=== PATIENT | male | born 1990 | race Caucasian/White ===

== ENCOUNTER 2024-02-01 07:31 | Outpatient (CLI) | payer BC, SELFPAY ==
--- NOTE | 2024-02-01 09:28 | W.ANESCHARGE ---
Anesthesia Charges Start Date/Time Anesthesia Start Date: 02/01/24 Anesthesia Start Time: 08:50 Stop Date/Time Anesthesia Stop Date: 02/01/24 Anesthesia Stop Time: 09:34
--- NOTE | 2024-02-01 09:36 | W.ANESCHARGE ---
Anesthesia Charges Start Date/Time Anesthesia Start Date: 02/01/24 Anesthesia Start Time: 08:50 Stop Date/Time Anesthesia Stop Date: 02/01/24 Anesthesia Stop Time: 09:34
== END 2024-02-01 07:32 | disposition home or self-care (01) ==
LOC: OP CLINIC 07:32
PROVIDERS: PCP Family Medicine; Visit Provider Internal Medicine Gastroenterology
DX: R19.7 Diarrhea, unspecified (principal); K44.9 Diaphragmatic hernia without obstruction or gangrene
CPT/HCPCS: 00813; 43239; 45380; 88305; J2704

== ENCOUNTER 2024-08-28 14:21 | Emergency (ER) | payer BC, SELFPAY ==
[2024-08-28 14:47] VITALS: BP 134/84; PULSE 110; RESP 18; TEMP 35.8; O2SAT 96; BMI 36.9
--- NOTE | 2024-08-28 15:08 | ED_ITS ---
HPI - General Adult General Chief complaint: Chest Pain Stated complaint: Chest pain Time Seen by Provider: 08/28/24 14:22 History of Present Illness HPI narrative: This 34-year-old male comes in with his son. He states that when he called the nurse line regarding his son he did mention that he was having some very brief episodes of chest discomfort lasting seconds. He does not have any other associated symptoms. He was instructed by the phone nurse to come to the emergency department for evaluation. He denies having any exercise intolerance. He does not have any nausea, vomiting, lightheadedness, or shortness of breath. He has not had any diaphoresis. He also reports some brief jolts of pain running down his left leg lasting just a couple seconds. He is otherwise in good health. Related Data Home Medications ?Medication ?Instructions ?Recorded ?Confirmed aripiprazole 20 mg tablet 15 mg PO QDAY 01/16/23 08/28/24 lamotrigine 25 mg tablet 50 mg PO ONCE 01/16/23 08/28/24 lamotrigine 300 mg tablet,extended 600 mg PO QDAY 01/16/23 08/28/24 release 24 hr aripiprazole 15 mg tablet 15 mg PO DAILY 08/28/24 08/28/24 metformin 500 mg tablet,extended 1,500 mg PO DAILY 08/28/24 08/28/24 release 24 hr Allergies Allergy/AdvReac Type Severity Reaction Status Date / Time famotidine AdvReac Mild worse acid Verified 08/28/24 14:45 reflux Review of Systems Status of ROS: Reports: 10 or more systems reviewed and unremarkable except as noted in History and below Narrative: Constitutional: No fevers, no weight gain or loss. Eyes: No discharge. No vision changes. HENT: No congestion, no sore throat, no ear pain. Cardiovascular: No chest pain, no palpitations. Respiratory: No shortness of breath, no wheezes, no cough. Gastrointestinal: No abdominal pain, no vomiting, no diarrhea. Genitourinary: No dysuria, no hematuria. Musculoskeletal: Normal range of motion. Skin: No rashes, no pruritis. Neurological: No dizziness, weakness, sensory change, speech change. Endo/Heme/Allergies: No bruising or bleeding. No polydipsia. Pysch: no suicidality, no anxiety, no insomnia. All other systems reviewed and are negative. PFSH PFSH Social History Smoking Status: Never smoker How often do you have a drink containing alcohol: never AUDIT-C Alcohol total score: 0 Non-prescribed substance use: denies use Exam Narrative: Exam Narrative: Constitutional: Well-developed, well-nourished, no acute distress. HEENT: Normocephalic, atraumatic. Neck: Normal range of motion. Nontender. Supple. Heart: Intact distal pulses. Lungs: No chest discomfort. No wheezes, rhonchi, or rales. Abdomen: Nontender. Back: Normal range of motion. Extremities: Normal range of motion. No injury. Skin: Intact. No rash. Warm. No erythema or pallor. Neurologic: No altered sensation. No weakness. Alert and oriented. Psychiatric: No suicidality. No anxiety or depression. No insomnia. Nursing notes and vitals signs are reviewed. Const: Vital Signs, click to edit/add: Vital Signs - 24 hr 08/28/24 14:47 Temperature 96.5 F L Pulse Rate [Pulse Oximeter] 110 H Respiratory Rate 18 Blood Pressure [Le ft Upper Arm] 134/84 Pulse Oximetry 96 Oxygen Delivery Me thod Room Air Course Vital Signs Vital signs: Initial Vital Signs Temperature 96.5 F L 08/28/24 14:47 Temperature Source Temporal Artery Scan 08/28/24 14:47 Pulse Rate 110 H 08/28/24 14:47 Respiratory Rate 18 08/28/24 14:47 Blood Pressure 134/84 08/28/24 14:47 Blood Pressure Mean 100 08/28/24 14:47 Blood Pressure Position Sitting 08/28/24 14:47 Pulse Oximetry 96 08/28/24 14:47 Oxygen Delivery Method Room Air 08/28/24 14:47 Vital Signs Temperature 96.5 F L 08/28/24 14:47 Pulse Rate 110 H 08/28/24 14:47 Respiratory Rate 18 08/28/24 14:47 Blood Pressure 134/84 08/28/24 14:47 Pulse Oximetry 96 08/28/24 14:47 Oxygen Delivery Method Room Air 08/28/24 14:47 Temperature 96.5 F L 08/28/24 14:47 Pulse Rate 110 H 08/28/24 14:47 Respiratory Rate 18 08/28/24 14:47 Blood Pressure 134/84 08/28/24 14:47 Pulse Oximetry 96 08/28/24 14:47 Oxygen Delivery Method Room Air 08/28/24 14:47 Discharge Plan Discharge Clinical Impression: Atypical chest pain Patient Disposition: Home, Self-Care Condition: Stable Additional Instructions: Use [id number] medicines as needed and directed. Follow up with MD or return if worsening. Prescriptions: No Action lamotrigine 25 mg tablet 50 mg PO ONCE lamotrigine 300 mg tablet extended release 24hr 600 mg PO QDAY aripiprazole 20 mg tablet 15 mg PO QDAY metformin 500 mg tablet extended release 24 hr 1,500 mg PO DAILY aripiprazole 15 mg tablet 15 mg PO DAILY Follow Up/Referrals: Haylee Huertas MD [Primary Care Provider] - Stand Alone Forms: [employer] Info Instructions
[2024-08-28 15:18] VITALS: BP 134/84; PULSE 110; RESP 18; TEMP 35.8
== END 2024-08-28 15:18 | disposition home or self-care (01) ==
PROVIDERS: Emergency Provider Emergency Medicine Emergency Medical Services; PCP Family Medicine
DX: R07.89 Other chest pain (principal)
CPT/HCPCS: 99283; 99284

== ENCOUNTER 2024-10-22 09:15 | Emergency (ER) | payer BC, SELFPAY ==
--- OUTSIDE RECORDS SUMMARY | 2024-10-22 09:18 | XMS_ITS | Clinical Summary ---
Author Organization [facility] Address [place], [place] [address] Care Team Providers Care Tailoring Teacher Name Role Phone Haylee Huertas MD Primary Care Provider Allergies Active Allergy Reactions Criticality Noted Date Comments Famotidine *Unknown,Other - Describe In Comment Field 01/09/2022 01/09/22 Geovanni states he is allergic to famotidine not prilosec. States prilosec worked well. Medications lamoTRIgine (LaMICtal XR) 300 mg extended release tabletIndicati ons:Temporal lobe epilepsy (HC) Take 2 Tablets (600 mg) by mouth once daily. 180 Tablet 1 1 Active lamoTRIgine (LAMICTAL) 25 mg tabletIndicati ons:Temporal lobe epilepsy (HC) Take 2 Tablets (50 mg) by mouth once daily. 180 Tablet 1 1 Active medication order composerIndica tions:ROSEMARY (obstructive sleep apnea) 12/17/2020 AHI- 16; Obstructive sleep apnea - diagnosis; MRD #1. Dental appliance 3 Active omeprazole 20 mg tabletIndicati ons:Chronic GERD Take 1 Tablet (20 mg) by mouth once daily. daily for 1 week as needed 30 Tablet 1 4 Active Digestive Enzymes capsule Take 1 Capsule by mouth three times daily with meals. DIGEST GOLD Maximum strength 4 Active ARIPiprazole (ABILIFY) 15 mg tabletIndicati ons:Bipolar 1 disorder (HC) Take 1 Tablet (15 mg) by mouth once daily. 90 Tablet 3 4 Active metFORMIN (GLUCOPHAGE XR) 500 mg Extended-Relea se tabletIndicati ons:Weight gain due to medication,Pre diabetes Take 4 Tablets (2,000 mg) by mouth once daily. Do not increase if side effects. Further refills will be prescribed during an appointment 360 Tablet 3 5 Active lithium carbonate (LITHONATE) 300 mg capsuleIndicat ions:Bipolar 1 disorder (HC) Take 3 Capsules (900 mg) by mouth at bedtime. Further refills will be prescribed after a blood draw 270 Capsule 5 Active metFORMIN (GLUCOPHAGE XR) 500 mg Extended-Relea se tabletIndicati ons:Weight gain due to medication,Pre diabetes Take 3 Tablets (1,500 mg) by mouth once daily for 28 days, THEN 4 Tablets (2,000 mg) once daily. Do not increase if side effects. Further refills will be prescribed during an appointment. 360 Tablet 4 09/30/19 25 Discontin ued(*Medi cation adjustmen t) lithium carbonate (LITHONATE) 300 mg capsuleIndicat ions:Bipolar 1 disorder (HC) Take 1 Capsule (300 mg) by mouth at bedtime. Further refills will be prescribed after a blood draw and during an appointment 90 Capsule 4 09/30/19 25 Discontin ued(*Medi cation adjustmen t) lithium carbonate (LITHONATE) 300 mg capsuleIndicat ions:Bipolar 1 disorder (HC) Take 2 Capsules (600 mg) by mouth at bedtime. Further refills will be prescribed after a blood draw 180 Capsule 5 10/11/19 25 Discontin ued(*Medi cation adjustmen t) Active Problems Problem Noted Date Diagnosed Date Neuroleptic-induced tardive dyskinesia, oral COVID-19 virus infection 08/28/2023 Overview (08/28/2023): August 2023: positive test with symptoms. 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 Resolved Problems Problem Noted Date Diagnosed Date Resolved Date Bipolar affective disorder, manic, severe, with psychotic behavior 05/12/2017 09/22/2022 Encounters Date Type Department Care Team Description 10/18/2024 3:00 PM CIRCUS SUPERVISOR Telemedicine [facility] [address] [place] [address] Error-please disregard (NO SHOW) 10/12/[address] [address] Alvarado Charles MD Medication Management (lithium carbonate (LITHONATE) 300 mg capsule ); Follow Up (return call) 10/12/[address] [address] Alvarado Charles MD Follow Up 10/11/[address] [address] Alvarado Charles MD 10/10/2024 1:15 PM CIRCUS SUPERVISOR Orders Only [address] [address] Lab, [facility] 10/10/2024 Travel 10/07/2024 Nurse Triage [address] [address] Alvarado Charles MD Rash 09/30/2024 12:30 PM CIRCUS SUPERVISOR Telemedicine [address] [address] Alvarado Charles MD Telehealth 09/30/[address] [address] Alvarado Charles MD CHRISTY 09/30/2024 Travel 09/26/2024 1:00 PM CIRCUS SUPERVISOR Nurse/Clinic Staff Only [address] [address] Immunization/Injection (COVID-19 AND FLU VACCINES ); Immunization/Injection 09/26/2024 Travel 09/20/2024 10:30 AM CIRCUS SUPERVISOR Telemedicine [address] [place] [address] Medical Nutrition Therapy; Telehealth 09/20/2024 Travel 09/16/2024 Orders Only [address] [place] [address] Haylee Huertas MD 1 scan: (1-Ord) NFLD-EKG-09/15/24 09/15/2024 10:50 AM CIRCUS SUPERVISOR Office Visit [address] [address] Haylee Huertas MD Cardiovascular Diagnostic Testing (Needing for Dr. Charles and Litium Draw) 09/15/2024 Travel 09/06/[address] [address] Haylee Huertas MD Refill Request (Omeprazole DR 20mg tablet) 09/02/2024 9:30 AM CIRCUS SUPERVISOR Office Visit [address] [address] Alvarado Charles MD Medication Management 09/02/2024 Travel 08/31/[address] [address] Alvarado Charles MD Medication Management (ARIPiprazole ) 08/28/2024 Nurse Triage [address] [address] Haylee Huertas MD Cough 08/16/2024 1:30 PM CIRCUS SUPERVISOR Telemedicine [address] [address] Alvarado Charles MD Telehealth; Medication Management (Things are not good, also has been sick with pertussis for about a month) 08/16/2024 Travel 08/15/2024 12:50 PM CIRCUS SUPERVISOR Office Visit [address] [address] Lucita Moran PA Cough 08/15/2024 Travel 08/15/2024 Nurse Triage [facility] [address] [place] [address] Haylee Huertas MD Cough from Last 3 Months Immunizations Name Administration Dates Next Due COVID-19 VACCINE SPIKEVAX (M ODERNA 50MCG/0.5ML) 12YO+ PFS 09/26/2024,10/15/2023 COVID-19 vaccine (Pfizer-Bio NTech 30mcg/0.3mL) 12YO+ NIKOLAY-SUCROSE PF, MDV 08/11/2022 DTP 03/17/1995, 2,1991,1990,1991 Hib Conjugate, Unspecified 06/14/1992,,1991,1990 INFLUENZA, IIV3 PF (AGE >= 6 MO) 09/26/2024 Influenza, IIV4 10/15/2023,08/11/2022 MMR 03/17/1995,06/14/1992 Oral Polio Vaccine 03/17/1995, 2,1991,1990,1991 Tdap 08/11/2022 Family History Medical History Relation Name Comments Asthma Brother Depression Father Heart Disease Father heart surgery in his 60s, unsure of type Thyroid Disease Mother Autism Son Relation Name Status Comments Brother Father Mother Son Alive Social History Tobacco Use Types Packs/Day Years Used Date Smoking Tobacco: Never Smokeless Tobacco: Never Tobacco Cessation:Counseling Given: Yes Alcohol Use Standard Drinks/Week Comments Not Currently 0 (1 standard drink = 0.6 oz pur e alcohol) denied lifetime PHQ-2 Answer Date Recorded PHQ-2 TOTAL SCORE 0 09/30/2024 Social Connections Answer Date Recorded Do you often feel lonely or isolated from those around you? 0 09/15/2024 Financial Resource Strain Answer Date R ecorded Difficulty of Paying Living Expenses 3 09/15/2024 Difficulty of Paying Living Expenses Not on file 09/15/2024 Food Insecurity Answer Date Recorded Do you worry your food will run out before you are able to buy more? 1 09/15/2024 Transportation Needs Answer Date Record ed Does lack of transportation keep you from medica l appointments? 1 09/15/2024 Does lack of transportation keep you from work, meetings or getting things that you need? 1 09/15/2024 Housing Stability Answer Date Recorded What is your housing situation today? 1 09/15/2024 Utilities Answer Date Recorded Do you have trouble paying f or utilities (for example, heat, electricity, water, phone)? 1 09/15/2024 Education Answer Date Recorded What is the highest level of school you have completed or the highest degree you have received? 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 Not on file Not on file Not on laron e Obstetrics History Last Filed Vital Signs Vital Sign Reading Time Taken Comments Blood Pressure 123/80 09/15/2024 10:48 AM CIRCUS SUPERVISOR Pulse 81 09/15/2024 10:48 AM CIRCUS SUPERVISOR Temperature 36.7 C (98.1 F) 08/15/2024 12:50 PM CIRCUS SUPERVISOR Respiratory Rate 16 08/27/2021 11:0 6 AM CIRCUS SUPERVISOR Oxygen Saturation 95% 09/15/2024 10: 48 AM CIRCUS SUPERVISOR Inhaled Oxygen Concentration - - Weight 114.4 kg (252 lb 3.2 oz) 024 10:48 AM CIRCUS SUPERVISOR Height 174.4 cm (5' 8.66) 01/28/2024 7:52 AM CD T Body Mass Index 37.61 01/28/2024 7:52 AM CDT Plan of Treatment Upcoming Encounters Date Type Department Care Team (Late st Contact Info) Description 11/04/2024 12:30 PM CIRCUS SUPERVISOR Telemedicine [facility] [address] [place] [address] Alvarado Charles MD [address] [place] [address] Health Maintenance Due Date Last Done Comments BMI (ht and wt on same day) for age 18+ 01/27/2025 01/28/2024, 10/15/2023, 08/27/2023, Additional history exists Depression screening for age 12+ 09/30/2025 09/30/2024, 09/30/2024, 09/02/2024, Additional history exists Tetanus booster 08/11/2032 08/11/2022 Colonoscopy through age 75 01/31/203401/31, 02/01/2024, 02/01/2024, Additional history exists HIV for age 15-65 Completed 08/11/2022 Hepatitis C screening for age 18-79 Completed 08/11/2022 Tdap Completed 08/11/2022 COVID-19 vaccine series Completed 09/26/19, 10/15/2023, 08/11/2022 Influenza for age 9-49 Completed 5, 10/15/2023, 08/11/2022 Pneumococcal series for age 6-49 Aged Out No longer eligible based on patient's age to complete this topic Procedures Procedure Name Priority Date/Time Associated Diagnosis Comments LITHIUM Routine 10/10/2024 1:14 PM CIRCUS SUPERVISOR Long-term use of high-risk medication EKG 12 LEAD Routine 09/16/2024 4:30 PM CIRCUS SUPERVISOR Transfer requested for continuity of care [place] EKG - NO CHARGE, COMP ONLY Routine 09/16/2024 4:29 PM CIRCUS SUPERVISOR Transfer requested for continuity of care LITHIUM Routine 09/15/2024 11:51 AM CIRCUS SUPERVISOR Long-term use of high-risk medication LITHIUM Routine 09/02/2024 10:45 AM CIRCUS SUPERVISOR Long-term use of high-risk medication TSH WITH REFLEX Routine 09/02/2024 10:45 AM CIRCUS SUPERVISOR Long-term use of high-risk medication CBC WITH AUTO DIFFERENTIAL Routine 09/02/2024 10:45 AM CIRCUS SUPERVISOR Long-term use of high-risk medication BASIC METABOLIC PANEL Routine 09/02/2024 10:45 AM CIRCUS SUPERVISOR Long-term use of high-risk medication COLONOSCOPY DIAGNOSTIC Routine 02/01/2024 7:59 AM CDT Chronic diarrhea ANTI HIV 1/2 Routine 08/11/2022 2:14 PM CIRCUS SUPERVISOR Screening for HIV (human immunodeficiency virus) ANTI HCV Routine 08/11/2022 2:14 PM CIRCUS SUPERVISOR Need for hepatitis C screening test from Last 3 Months or Most Recently Relevant to Health Maintenance Results * (ABNORMAL) LITHIUM (10/10/2024 1:14 PM CIRCUS SUPERVISOR) Only the most recent of3 resultswithin the time period is included. LITHIUM 0.3(L) 0.6 - 1.2 mmol/L [facility] Blood BLOOD SPECIMEN / Unknown 10/10/2024 1:14 PM CIRCUS SUPERVISOR 10/10/2024 1:16 PM CIRCUS SUPERVISOR Narrative [facility] - 10/11/2024 2:46 PM CIRCUS SUPERVISOR FASTING:NO FASTING: NO us Alvarado Charles MD CHEMISTRY Final Result Performing Organization Address City/[facility] Co de Phone Number [employer] [facility] [address] [place] [address], [facility] [address] [place] [address] * EKG 12 LEAD (09/16/2024 4:30 PM CIRCUS SUPERVISOR) us Haylee Huertas MD EKG ORD Final Resul t * [place] READING EKG - NO CHARGE, COMP ONLY (09/16/2024 4:29 PM CIRCUS SUPERVISOR) us Haylee Huertas MD PB - [facility] Rosa [facility] Result * TSH WITH REFLEX (09/02/2024 10:45 AM CIRCUS SUPERVISOR) TSH W/REFLEX TO FT4 1.79 0.40 - 4.50 mIU/L [facility] Blood BLOOD SPECIMEN / Unknown 09/02/2024 10:45 AM CIRCUS SUPERVISOR 09/02/2024 10:45 AM CIRCUS SUPERVISOR us Alvarado Charles MD CHEMISTRY Final Result [facility] [address] [place] [address], [facility] [address] [place] [address] * CBC AND DIFFERENTIAL (09/02/2024 10:45 AM CIRCUS SUPERVISOR) [facility] WHITE BLOOD CELL COUNT 7.8 3.8 - 10.8 Thousand/u L [facility] RED BLOOD CELL COUNT 5.40 4.20 - 5.80 Million/uL [facility] HEMOGLOBIN 16.6 13.2 - 17.1 g/dL [facility] HEMATOCRIT 48.6 38.5 - 50.0 % [facility] MCV 90.0 80.0 - 100.0 fL [facility] MCH 30.7 27.0 - 33.0 pg [facility] MCHC 34.2 32.0 - 36.0 g/dL [facility] Comment: For adults, a slight decrease in the calculated MCHC value (in the range of 30 to 32 g/dL) is most likely not clinically significant; however, it should be interpreted with caution in correlation with other red cell parameters and the patient's clinical condition. RDW 12.8 11.0 - 15.0 % [facility] PLATELET COUNT 308 140 - 400 Thousand/u L [facility] MPV 10.8 7.5 - 12.5 fL [facility] ABSOLUTE NEUTROPHILS 4,376 1,500 - 7,800 cells/uL [facility] ABSOLUTE LYMPHOCYTES 2,675 850 - 3,900 cells/uL [facility] ABSOLUTE MONOCYTES 546 200 - 950 cells/uL [facility] ABSOLUTE EOSINOPHILS 156 15 - 500 cells/uL [facility] ABSOLUTE BASOPHILS 47 0 - 200 cells/uL [facility] NEUTROPHILS 56.1 % [facility] LYMPHOCYTES 34.3 % [facility] MONOCYTES 7.0 % [facility] EOSINOPHILS 2.0 % [facility] BASOPHILS 0.6 % [facility] Blood BLOOD SPECIMEN / Unknown 09/02/2024 10:45 AM CIRCUS SUPERVISOR 09/02/2024 10:45 AM CIRCUS SUPERVISOR Alvarado Charles MD HEMATOLOGY Final Result Performing Organization Address [facility]/ZIP Co de Phone Number [facility] [address] [place] [address], [facility] [address] [place] [address] * BASIC METABOLIC PANEL (09/02/2024 10:45 AM CIRCUS SUPERVISOR) Pathologist [facility] GLUCOSE 93 65 - 99 mg/dL [facility] Comment: Fasting reference interval UREA NITROGEN (BUN) 17 7 - 25 mg/dL [facility] CREATININE 0.99 0.60 - 1.26 mg/dL [facility] EGFR 103 > OR = 60 mL/min/1. 73m2 [facility] BUN/CREATININE RATIO SEE NOTE: 6 - 22 (calc) [facility] Comment: Not Reported: BUN and Creatinine are within reference range. SODIUM 139 135 - 146 mmol/L [facility] POTASSIUM 4.8 3.5 - 5.3 mmol/L [facility] CHLORIDE 104 98 - 110 mmol/L [facility] CARBON DIOXIDE 25 20 - 32 mmol/L [facility] ELECTROLYTE BALANCE 10 7 - 17 mmol/L (calc) [facility] CALCIUM 9.6 8.6 - 10.3 mg/dL [facility] Blood BLOOD SPECIMEN / Unknown 09/02/2024 10:45 AM CIRCUS SUPERVISOR 09/02/2024 10:45 AM CIRCUS SUPERVISOR Alvarado Charles MD CHEMISTRY Final Result Performing Organization Address [facility]/ZIP Co de Phone Number [employer] [facility] [address] [place] [address], [facility] [address] [place] [address] * SCAN-COLONOSCOPY (02/01/2024 12:00 AM CDT) Scanner OTHER Final Result * ANTI HCV (08/11/2022 2:14 PM CIRCUS SUPERVISOR) HEPATITIS C ANTIBODY Non-React shireen Non-React shireen 08/12/2022 9:25 PM CIRCUS SUPERVISOR [facility] Comment:Antibodies to HCV no t detected; does not exclude the possibility of exposure to HCV. Blood BLOOD SPECIMEN / Unknown Venipuncture / Unknown 08/11/2022 2:14 PM CIRCUS SUPERVISOR 08/11/2022 2:14 PM CIRCUS SUPERVISOR Haylee Huertas MD SEND OUTS Final Resul t Performing Organization Address City/[facility]/ZIP Co de Phone Number [facility] [address] [place] [address], [place] * ANTI HIV 1/2 [21344.0] (08/11/2022 2:14 PM CIRCUS SUPERVISOR) Pathologist [facility] HIV-1/HIV-2 ANTIBODY Non-Reacti ve Non-Reacti ve 08/12/2022 9:32 PM CIRCUS SUPERVISOR [facility] Comment:HIV-1 p24 and HIV-1/ HIV-2 Ab not detected. Blood BLOOD SPECIMEN / Unknown Venipuncture / Unknown 08/11/2022 2:14 PM CIRCUS SUPERVISOR 08/11/2022 2:14 PM CIRCUS SUPERVISOR Haylee Huertas MD SEND OUTS Final Resul t [facility] [address] [place] [address], from Last 3 Months or Most Recently Relevant to Health Maintenance Insurance [place] Care Teams Tailoring Teacher Relationship Specialty Start Date End Date Haylee Huertas MD [address] [place] [address] PCP - General Family Practice 08/11/22
--- OUTSIDE RECORDS SUMMARY | 2024-10-22 09:18 | XMS_ITS | Encounter Summary ---
Author Organization [facility] Address [address] [place] [id number] Care Team Providers Care Manager Patient Name Role Phone Elsewhere, Pcp Primary Care Provider Unavailabl e Reason for Referral * Outpatient (Routine) - Authorized Specialty Diagnoses / Procedures Referred By Janie prater Referred To Contact Neurology Annamaria Huizar APRN C.N.P., M.S. [address] [place] [phone] Phone: tel: fax: [facility] Referral ID Status Reason Start Date Expiration Date V isits Requested Visits Authorized [id number] Authorized 10/13/2024 04/14/2026 1 1 ESTIMATING MANAGER Reason for Visit * Reason Onset Date Comments Med Question 10/13/2024 Bhupendra Encounter Details Date Type Department Care Team (Latest Contact Info) Description 10/13/2024 Clinical Communication Department of Neurology in [place], [place] [address] [place] [phone] Annamaria Huizar APRN, C.N.P., M.S. [address] [place] [phone] Med Question (Bhupendra) Social History Tobacco Use Types Packs/Day Years Used Date Smoking Tobacco: Never Passive Smoke Exposure: Past Smokeless Tobacco: Never [facility] Utilities Answer Date Recorded In the past 12 months has [facility] electric, gas, oil, or water company threatened to shut off services in your home? No 09/12/2023 Humiliation, Afraid, Rape, and Kick questionnair e Answer Date Recorded Within the last year, have y ou been afraid of your partner or ex-partner? No 11/09/2021 Within the last year, have y ou been humiliated or emotionally abused in other ways by your partner or ex-partner? No Within the last year, have y ou been kicked, hit, slapped, or otherwise physically hurt by your partner or ex-partner? No 11/09/2021 Within the last year, have y ou been raped or forced to have any kind of sexual activity by your partner or ex-partner? No 11/09/2021 Social Connection and Isolat ion Panel [NHANES] Answer Date Recorded In a typical week, how many times do you talk on the phone with family, friends, or neighbors? More than three times a week 11/09/2021 How often do you get togethe r with friends or relatives? Twice a week 11/09/2021 How often do you attend [facility] or mandaen services? More than 4 times per year 11/09/2021 Do you belong to any clubs o r organizations such as catholic groups, unions, fraternal or athletic groups, or school groups? Yes 11/09/2021 How often do you attend meet ings of the clubs or organizations you belong to? More than 4 times per year 11/09/2021 Are you , , di vorced, , never , or living with a partner? 11/09/2021 AUDIT-C Answer Date Recorded Q1: How often do you have a drink containing alc ohol? Never 11/09/2021 Average Number of Drinks Not on file 022 Frequency of Binge Drinking Not on file 10/22 Overall Financial Resource Strain (CARDIA) Answe r Date Recorded How hard is it for you to pa y for the very basics like food, housing, medical care, and heating? Not hard at all 11/09/2021 PHQ-2 Answer Date Recorded PHQ-2 Score 0 01/09/2022 [facility] [place] of Occupat ional Health - Occupational Stress Questionnaire Answer Date Recorded Do you feel stress - tense, restless, nervous, or anxious, or unable to sleep at night because your mind is troubled all the time - these days? Not at all 11/09/2021 Exercise Vital Sign Answer Date Recorde d On average, how many days pe r week do you engage in moderate to strenuous exercise (like a brisk walk)? 0 days 09/12/2023 On average, how many minutes do you engage in exercise at this level? 0 min 09/12/2023 Hunger Vital Sign Answer Date Recorded Within the past 12 months, y ou worried that your food would run out before you got the money to buy more. Never true 09/12/20 Within the past 12 months, t he food you bought just didn't last and you didn't have money to get more. Never true 09/12/2023 PRAPARE - Transportation Answer Date Re corded In the past 12 months, has l ack of transportation kept you from medical appointments or from getting medications? No 08/22 In the past 12 months, has l ack of transportation kept you from meetings, work, or from getting things needed for daily living? No 09/12/2023 Depression Answer Date Recor ded PHQ-9 Total Score (max 27) 3 01/09 Nutrition Answer Date Recorded Nutrition: EVOO Fat Source Yes 09/12 On average, how many serving s of fruits and vegetables do you eat per day (serving size is equal to 1 cup or approximately the size of a tennis ball)? 3-5 09/12/2023 Dental Answer Date Recorded Dental: Regular Dentist Yes 09/12/20 Employment Answer Date Recorded Employment status Employed and actively working without restrictions 09/12/2023 Housing Stability Answer Date Recorded What is your living situation today? I have a [facility] place to live 09/12/2023 Education Answer Date Recorded What is the highest level of school you have completed or the highest degree you have received? Bachelor's degree (e.g., BA, AB, BS) 11/09/2021 Sex and Gender Information Value Date Recorded Sex Assigned at Male 11/09/2021 3:34 PM COST ESTIMATING MANAGER Legal Sex Male 1:05 PM CDT Gender Identity Male 11/09/2021 3:34 PM COST ESTIMATING MANAGER Sexual Orientation Straight 11/09/2021 3: 34 PM COST ESTIMATING MANAGER documented as of this encounter Miscellaneous Notes * Telephone Encounter - Dayana Cisneros R.N. - 10/13/2024 1:19 PM COST ESTIMATING MANAGER ASSESSMENT This RN returned call to patient regarding earlier phone call. Geovanni reported since last Thursday, he has had small flat red patches on his skin. They are not hives or blister. They are aggravated with scratching. They are present to hands, arms, legs, back, one large area on his abdomen and one small area to his face. They are not itchy. He has tried Zyrtec for the red patches earlier in the week and initially seemed to help some, but has not noticed benefit now. He is placing moisturizer onhis skin. He agrees to sending a few photo's of the rash via [employer] message. He denies any redness to eyes. He does report some vision changes such as when he is reading he needs to try and focus more intently on reading the words. He denies fever, dizziness, unsteady, fatigue. He has been on lamotrigine 650 mg daily for years. He started [place] about one month ago and is currently on a titration. Regarding his twitching, he reports this to happen daily. He can feel it, but it does not draw people's attention. He reports the twitching to be slight in his hand, but he can see it if he pays attention to it. This has been going on for about 3 months now and may have correlated with adjustments to his aripiprazole. He also reports a recent single involuntary kick which makes him wonder if an EEG should be completed. He has not had any recent seizure activity that he is aware of, but with these two symptoms, he is concerned. PLAN Will provide this information to Annamaria Huizar APRN, CNP. Patient will try to upload a few pictures of the rash for Annamaria Huizar's review. Disposition/Recommendation: notified provider and awaiting recommendations. Information/Education: patient/caller able to teach back. Caller agreeable to plan of care: yes. The following references were used: nursing clinical judgement. ESTIMATING MANAGER ESTIMATING MANAGER documented in this encounter Plan of Treatment Upcoming Encounters Date Type Department Care Team (Latest Contact Info) Description 11/09/2024 1:45 PM COST ESTIMATING MANAGER Clinical Communication Virtual Review in [place], [place] 200 [place] [phone] 11/10/2024 8:00 AM COST ESTIMATING MANAGER Telemedicine Department of Neurology in [place], [place] [address] [place] [phone] Annamaria Huizar, LILO, C.N.P., M.S. [address] [place] [phone] Scheduled Referrals Name Type Priority Associated Diagnoses Orde r Schedule Neurology office visit (clinic) Outpatient Referral Routine Expected: 10/13/2024, Expires: 01/11/2026 documented as of this encounter Visit Diagnoses Not on filedocumented in this encounter Additional Health Concerns Assessment Noted Time PHQ-9 Depression Total Score: 3 01/10/20 22 7:28 AM CDT documented as of this encounter Care Teams Manager Patient Relationship Specialty Start Date End Date Elsewhere, Pcp PCP - General Internal Medicine 09/10/23 documented as of this encounter
--- OUTSIDE RECORDS SUMMARY | 2024-10-22 09:18 | XMS_ITS | Clinical Summary ---
Author Organization [facility] Address [address] [place] [address] Care Team Providers Care Rand Maker Name Role Phone Elsewhere, Pcp Primary Care Provider Unavailabl e Source Comments Patient records contain information from all sites at [facility]. For routine questions regarding patient records, call [phone] during business hours, M-F 8:00 AM - 5:00 PM Central Time. Record requests for emergency care only can be directed to [phone] at any time.[facility] Allergies Active Allergy Reactions Criticality Noted Date Comments Famotidine Other (see comments) 01/09/2022 01/09/22 Geovanni states he is allergic to famotidine not prilosec. States prilosec worked well. Medications * This document contains information received from the source organization and may not represent a complete record from that organization. UNABLE TO FIND 12/17/2020 AHI- 16; Obstructive sleep apnea - diagnosis; MRD #1. Dental appliance 3 Active ARIPiprazole (Abilify) 10 mg tablet Take 1 tablet by mouth daily. 4 Active metFORMIN XR (Glucophage-XR) 500 mg 24 hr tablet Take 500 mg by mouth daily. 4 Active ARIPiprazole (Abilify) 2 mg tablet Take 2 mg by mouth daily. 4 Active lamoTRIgine (LaMICtaL) 25 mg tabletIndicatio ns:Seizure Disorder (HCC) Take 2 tablets (50 mg total) by mouth daily. 180 tablet 3 4 Active lamoTRIgine ER (LaMICtaL XR) 300 mg 24 hr tabletIndicatio ns:Seizure Disorder (HCC) Take 2 tablets (600 mg total) by mouth daily. 180 tablet 3 4 Active Encounters Date Type Department Care Team Description 10/13/2024 Clinical Communication Department of Neurology in [place], [place] [address] [place] [phone] Annamaria Huizar APRN C.N.Chanelle., M.S. Med Question (Bhupendra) from Last 3 Months Social History Tobacco Use Types Packs/Day Years Used Date Smoking Tobacco: Never Passive Smoke Exposure: Past Smokeless Tobacco: Never Tobacco Cessation:Counseling Given: Not Answered [facility] Sparkities Answer Date Recorded In the past 12 months has th e electric, gas, oil, or water [employer] threatened to shut off services in your [...] week 11/09/2021 How often do you attend chur ch or holiness services? More than 4 times per year 11/09/2021 Do you belong to any clubs o r organizations such as rastafarian groups, unions, fraternal or athletic groups, or [...] Answer Date Recorded PHQ-2 Score 0 01/09/2022 [facility] of Occupat ional Health - Occupational Stress [...] your living situation today? I have a [facility] place to live 09/12/2023 Education Answer Date Recorded What is the highest level of school you have completed or the highest degree you have received? Bachelor's degree (e.g., BA, AB, BS) 11/09/2021 Sex and Gender Information Value Date Recorded Sex Assigned at Male 11/09/2021 3:34 PM PICKLER HELPER Legal Sex Male 1:05 PM CDT Gender Identity Male 11/09/2021 3:34 PM PICKLER HELPER Sexual Orientation Straight 11/09/2021 3: 34 PM PICKLER HELPER Last Filed Vital Signs Vital Sign Reading Time Taken Comments Blood Pressure 105/75 01/09/2022 7:29 AM CDT Pulse 87 01/09/2022 7:29 AM CDT Temperature 36.4 C (97.5 F) 11/11/2021 10:01 AM PICKLER HELPER Respiratory Rate - - Oxygen Saturation - - Inhaled Oxygen Concentration - - Weight 110 kg (241 lb 6.5 oz) 01/09/2022 7:29 AM CDT Height 174.5 cm (5' 8.7) 01/09/2022 7:29 AM CDT Body Mass Index 35.96 01/09/2022 7:29 AM CDT Plan of Treatment Upcoming Encounters Date Type Department Care Team (Latest Contact Info) Description 11/09/2024 1:45 PM PICKLER HELPER Clinical Communication Virtual Review in [place], [place] [address] [place] [phone] 11/10/2024 8:00 AM PICKLER HELPER Telemedicine Department of Neurology in [place], [place] [address] [place] [phone] Annamaria Huizar, LILO, C.N.P., M.S. [address] [place] [phone] Health Maintenance Due Date Last Done Comments HIV Screening 1991 Hepatitis C Screening 1991 Hepatitis B Vaccines (1 of 3 - 19+ 3-dose series) 2010 Glucose Test for Med Monitoring 08/29/2023 08/29/2022, 01/09/2022, 04/26/2021, Additional history exists Depression Screening (Annual PHQ-2) 09/21/2024 DTaP,Tdap,and Td Vaccines (7 - Td or Tdap) 08/11/2032 08/11/2022, 03/17/1995, 06/14/1992, Additional history exists COVID-19 Vaccine Completed 09/26/2024, , 08/11/2022 Influenza Vaccine Completed 09/26/2024, , 08/11/2022 HPV Vaccines Aged Out No longer eligi ble based on patient's age to complete this topic IPV Vaccines Aged Out No longer eligi ble based on patient's age to complete this topic Pneumococcal vaccine (0-49 years) Aged Out No longer eligible based on patient's age to complete this topic Procedures Procedure Name Priority Date/Time Associated Diagnosis Comments COMPREHENSIVE METABOLIC PANEL, S/P Routine 01/09/2022 7:18 AM CDT Seizure Disorder (HCC) from Last 3 Months or Most Recently Relevant to Health Maintenance Results * (ABNORMAL) Comprehensive Metabolic Panel (01/09/2022 7:18 AM CDT) Potassium, S 4.7 3.6 - 5.2 mmol/L 01/09/2022 8:36 AM CDT DTL Sodium, S 142 135 - 145 mmol/L 01/09/2022 8:36 AM CDT DTL Chloride, S 104 98 - 107 mmol/L 01/09/2022 8:36 AM CDT DTL Bicarbonate, S 27 22 - 29 mmol/L 01/09/2022 8:36 AM CDT DTL Anion Gap 11 7 - 15 01/09/2022 8:36 AM CDT DTL BUN (Blood Urea Nitrogen), S 13 8 - 24 mg/dL 01/09/2022 8:36 AM CDT DTL Creatinine 1.09 0.74 - 1.35 mg/dL 01/09/2022 8:36 AM CDT DTL eGFR-Non Black/ >90 >=60 mL/min/BS A 01/09/2022 8:36 AM CDT DTL Comment: ----ADDITIONAL INFORMATION---- Estimated GFR calculated using the 2009 CKD_EPI creatinine equation. eGFR-Black/ >90 >=60 mL/min/BS A 01/09/2022 8:36 AM CDT DTL Comment: ----ADDITIONAL INFORMATION---- Estimated GFR calculated using the 2009 CKD_EPI creatinine equation. Calcium, Total, S 9.1 8.6 - 10.0 mg/dL 01/09/2022 8:36 AM CDT DTL Glucose, S 97 70 - 140 mg/dL 01/09/2022 8:36 AM CDT DTL Protein, Total, S 6.8 6.3 - 7.9 g/dL 01/09/2022 8:36 AM CDT DTL Albumin, S 4.8 3.5 - 5.0 g/dL 01/09/2022 8:36 AM CDT DTL Aspartate Aminotransferase (AST), S 27 8 - 48 U/L 01/09/2022 8:36 AM CDT DTL Alkaline Phosphatase, S 66 40 - 129 U/L 01/09/2022 8:36 AM CDT DTL Alanine Aminotransferase (ALT), S 67(H) 7 - 55 U/L 01/09/2022 8:36 AM CDT DTL Bilirubin, Total, S 0.4 <=1.2 mg/dL 01/09/2022 8:36 AM CDT DTL Blood (Blood, Venous) 01/09/2022 7:18 AM CDT 01/09/2022 8:16 AM CDT Nga Paul M.D. LAB BLOOD ADD-ON Final Resu lt [facility] [address] [place] [address], [place] DTL [facility] [address] [place] [address] from Last 3 Months or Most Recently Relevant to Health Maintenance Insurance [facility] Care Teams Rand Maker Relationship Specialty Start Date End Date Elsewhere, Pcp PCP - General Internal Medicine 09/10/23
[2024-10-22 09:22] VITALS: BP 125/78; PULSE 102; RESP 20; TEMP 35.9; O2SAT 94; BMI 36.9
--- NOTE | 2024-10-22 09:48 | ED_ITS ---
HPI - General Adult General Chief complaint: Skin/Abscess/Foreign Body Stated complaint: Triage line sent in for fredi moore. Time Seen by Provider: 10/22/24 09:37 Source: patient Mode of arrival: ambulatory Limitations: no limitations History of Present Illness HPI narrative: Patient is a 34-year-old male presenting today with concerns about Whalen Remi's syndrome. Patient has been dealing with a rash for approximately 3 weeks and when he called the triage line this morning because he felt that his rash got worse last night he was told to come into the ER to rule out Whalen- Remi syndrome. Patient tells me that he started lithium about a month ago and shortly afterwards developed full body pruritus. He it comes and goes and it comes and patches so 1 day OB his arm that is itchy another day will be is back etc.. He denies vomiting. No fevers or chills. No changes in his appetite. No diarrhea. No lethargy. He tells me that he subsequently stopped the lithium about a week ago he thinks but the itching does continue to come and go and migrate throughout the body. He does get a rash also when the itching comes. He does notice that the more an area itches the more a rashes present. However the rash in the itching do not last for more than a day before it stops and migrates someplace else. He denies any unintended weight changes that he is aware of recently. He does follow-up with neurology for seizure disorder and with Psychiatry for his bipolar disorder. He is currently taking the lamotrigine which he states started causing him some morning nausea and he takes air prep was all which she states likely is not working for him any longer. He has follow-up appointments this month with both his psychiatrist and his neurologist already scheduled. Patient states that last night he started getting very itchy the posterior area of both shoulders just where his hands could reach to scratch the area he stated that the area became red with elevated bumps. He states that it is all back to normal today. Lastly, patient also tells me he has been dealing with a specific rash in his groin area. He tells me he has used all sorts of creams and medications for it and it is not getting better. He states that it is not getting worse. Again denies any systemic symptoms or weeping lesions of the genitals. Patient does not want his genitals examined today. Related Data Home Medications ?Medication ?Instructions ?Recorded ?Confirmed aripiprazole 20 mg tablet 15 mg PO QDAY 01/16/23 10/07/24 lamotrigine 25 mg tablet 50 mg PO ONCE 01/16/23 10/07/24 lamotrigine 300 mg tablet,extended 600 mg PO QDAY 01/16/23 10/07/24 release 24 hr aripiprazole 15 mg tablet 15 mg PO DAILY 08/28/24 10/07/24 metformin 500 mg tablet,extended 1,500 mg PO DAILY 08/28/24 10/07/24 release 24 hr lithium carbonate 600 mg capsule 600 mg PO QHS 10/07/24 10/07/24 Previous Rx's ?Medication ?Instructions ?Recorded hydrocortisone 2.5 % topical cream 1 applic topical BID PRN itching 10/07/24 #20 grams Allergies Allergy/AdvReac Type Severity Reaction Status Date / Time famotidine AdvReac Mild worse acid Verified 10/22/24 09:21 reflux Review of Systems Status of ROS: Reports: 10 or more systems reviewed and unremarkable except as noted in History and below [facility] Social History Smoking Status: Never smoker Do you use any of these nicotine containing products: None Second hand tobacco smoke exposure: No How often do you have a drink containing alcohol: never How often do you have six or more drinks on one occasion: Never AUDIT-C Alcohol total score: 0 Non-prescribed substance use: denies use service: No Exam Narrative: Exam Narrative: Overweight, well-developed patient in no acute distress. Alert and oriented x3. Answers questions appropriately. Flat affect. Thoughts are goal oriented and rational. No tangential or magical thinking noted. Patient speaks in full sentences without needing to catch his breath. He does not appear ill or toxic. HEENT: Normocephalic atraumatic. Pupils are equally round reactive to light. Extraocular muscles are intact. Conjunctivae are moist without any icterus noted. Moist mucous membranes. Posterior pharynx is normal. Neck is soft without any lymphadenopathy or thyromegaly. No masses are appreciated. No lesions noted on the inside of the mouth. Cardiovascular: Slightly tachycardic, regular rhythm, S1-S2 present without any murmurs. Lungs: Clear to auscultation bilaterally no wheezes rhonchi or rales are appreciated. Patient takes deep breaths without any discomfort. Abdomen: Soft and nontender nondistended with normal bowel sounds. Extremities: Bilateral lower extremities are without edema. Skin: Well perfused without any obvious rashes. Patient does have some acne on his back. There are no open lesions, no active rash at this moment. No rash of the extremities. : Refused. Const: Vital Signs, click to edit/add: Vital Signs - 24 hr 10/22/24 09:22 Temperature 96.7 F L Pulse Rate [Pulse Oximeter] 102 H Respiratory Rate 20 Blood Pressure [Le ft Upper Arm] 125/78 Pulse Oximetry 94 Oxygen Delivery Me thod Room Air Course Vital Signs Vital signs: Initial Vital Signs Temperature 96.7 F L 10/22/24 09:22 Temperature Source Temporal Artery Scan 10/22/24 09:22 Pulse Rate 102 H 10/22/24 09:22 Pulse Rhythm Regular 10/22/24 09:22 Respiratory Rate 20 10/22/24 09:22 Blood Pressure 125/78 10/22/24 09:22 Blood Pressure Mean 93 10/22/24 09:22 Blood Pressure Position Sitting 10/22/24 09:22 Pulse Oximetry 94 10/22/24 09:22 Oxygen Delivery Method Room Air 10/22/24 09:22 Vital Signs Temperature 96.7 F L 10/22/24 09:22 Pulse Rate 102 H 10/22/24 09:22 Respiratory Rate 20 10/22/24 09:22 Blood Pressure 125/78 10/22/24 09:22 Pulse Oximetry 94 10/22/24 09:22 Oxygen Delivery Method Room Air 10/22/24 09:22 Temperature 96.7 F L 10/22/24 09:22 Pulse Rate 102 H 10/22/24 09:22 Respiratory Rate 20 10/22/24 09:22 Blood Pressure 125/78 10/22/24 09:22 Pulse Oximetry 94 10/22/24 09:22 Oxygen Delivery Method Room Air 10/22/24 09:22 Medical Decision Making MDM Narrative Medical decision making narrative: 34-year-old male with pruritus. We discussed the cause of pruritus is very broad. I recommend he have this discussion with his neurologist and his psychiatrist were prescribing him his medications and change medications as needed. Recommend he see a primary care provider as well to follow-up on the rash of his groin. He is reassured today that there is no evidence of Whalen- Remi syndrome. Discharge Plan Discharge Clinical Impression: Pruritus Patient Disposition: Home, Self-Care Condition: Stable Instructions: Itchy Skin (ED) Additional Instructions: Follow-up with your neurologist and psychiatrist as scheduled. If the morning nausea becomes more troublesome, call your neurologist to discuss these symptoms before your next scheduled appointment. Recommend you follow-up with your primary care provider as well to discuss itchy skin and the rash of the groin . Prescriptions: No Action lamotrigine 25 mg tablet 50 mg PO ONCE lamotrigine 300 mg tablet extended release 24hr 600 mg PO QDAY aripiprazole 20 mg tablet 15 mg PO QDAY lithium carbonate 600 mg capsule 600 mg PO QHS hydrocortisone 2.5 % cream 1 applic topical BID PRN (Reason: itching) Qty: 20 0RF metformin 500 mg tablet extended release 24 hr 1,500 mg PO DAILY aripiprazole 15 mg tablet 15 mg PO DAILY Follow Up/Referrals: Haylee Huertas MD [Primary Care Provider] - Stand Alone Forms: [employer] Info Instructions
--- OUTSIDE RECORDS SUMMARY | 2024-10-22 09:58 | XMS_ITS | Clinical Summary ---
Author Organization [facility] Address [address] [place] [address] Care Team Providers Care Pipe Cleaning Machine Operator Name Role Phone Elsewhere, Pcp Primary Care Provider Unavailabl e Source Comments Patient records contain information from all sites at [facility]. For routine questions regarding patient records, call [phone] during business hours, M-F 8:00 AM - 5:00 PM Central Time. Record requests for emergency care only can be directed to [phone] at any time.[facility] Allergies Active Allergy Reactions Criticality Noted Date [...] 10/13/2024 Clinical Communication Department of Neurology in [place], [place] [address] [place] [address] Annamaria Huizar APRN C.N.Chanelle., M.S. Med Question (Bhupendra) from Last 3 Months Social History Tobacco Use Types Packs/Day Years Used Date Smoking Tobacco: Never Passive Smoke Exposure: Past Smokeless Tobacco: Never Tobacco Cessation:Counseling Given: Not Answered [facility] Answer Date Recorded In the past 12 months has th e electric, gas, oil, or water [employer] threatened to shut off services in your [...] often do you attend chur ch or gnosticist services? More than 4 times per year 11/09/2021 Do you belong to any clubs o r organizations such as methodist groups, unions, fraternal or athletic groups, or [...] Answer Date Recorded PHQ-2 Score 0 01/09/2022 [facility] of Occupat ional Health - Occupational Stress [...] your living situation today? I have a [facility] to live 09/12/2023 Education Answer Date Recorded What is the highest level of school you have completed or the highest degree you have received? Bachelor's degree (e.g., BA, AB, BS) 11/09/2021 Sex and Gender Information Value Date Recorded Sex Assigned at Male 11/09/2021 3:34 PM SHOP SUPERINTENDENT Legal Sex Male 1:05 PM CDT Gender Identity Male 11/09/2021 3:34 PM SHOP SUPERINTENDENT Sexual Orientation Straight 11/09/2021 3: 34 PM SHOP SUPERINTENDENT Last Filed Vital Signs Vital Sign Reading Time Taken Comments Blood Pressure 105/75 01/09/2022 7:29 AM CDT Pulse 87 01/09/2022 7:29 AM CDT Temperature 36.4 C (97.5 F) 11/11/2021 10:01 AM SHOP SUPERINTENDENT Respiratory Rate - - Oxygen Saturation - - Inhaled Oxygen Concentration - - Weight 110 kg (241 lb 6.5 oz) 01/09/2022 7:29 AM CDT Height 174.5 cm (5' 8.7) 01/09/2022 7:29 AM CDT Body Mass Index 35.96 01/09/2022 7:29 AM CDT Plan of Treatment Upcoming Encounters Date Type Department Care Team (Latest Contact Info) Description 11/09/2024 1:45 PM SHOP SUPERINTENDENT Clinical Communication Virtual Review in [place], [place] [address] [place] [address] 11/10/2024 8:00 AM SHOP SUPERINTENDENT Telemedicine Department of Neurology in [place], [place] [address] [place] [phone] Annamaria Huizar, LILO, C.N.P., M.S. [address] [place] [phone] Health Maintenance Due Date Last Done Comments [...] M.D. LAB BLOOD ADD-ON Final Resu lt [facility] [address] [place] [address], [place] DTL [facility] [address] [place] [address] from Last 3 Months or Most Recently Relevant to Health Maintenance Insurance [facility] Care Teams Pipe Cleaning Machine Operator Relationship Specialty Start Date End Date Elsewhere, Pcp PCP - General Internal Medicine 09/10/23
--- OUTSIDE RECORDS SUMMARY | 2024-10-22 09:58 | XMS_ITS | Clinical Summary ---
Author Organization [facility] Address [place], [place] [address] Care Team Providers Care Payroll Officer Name Role Phone Haylee Huertas MD Primary [...] Department Care Team Description 10/18/2024 3:00 PM ASBESTOS WORKER Telemedicine [facility] [address] [place] [address] Error-please disregard (NO SHOW) 10/12/[address] [address] Alvarado Charles MD Medication Management (lithium carbonate (LITHONATE) 300 mg capsule ); Follow Up (return call) 10/12/[address] [address] Alvarado Charles MD Follow Up 10/11/[address] [address] Alvarado Charles MD 10/10/2024 1:15 PM ASBESTOS WORKER Orders Only [address] [address] Lab, [facility] 10/10/2024 Travel 10/07/2024 Nurse Triage [address] [address] Alvarado Charles MD Rash 09/30/2024 12:30 PM ASBESTOS WORKER Telemedicine [address] [address] Alvarado Charles MD Telehealth 09/30/[address] [address] Alvarado Charles MD CHRISTY 09/30/2024 Travel 09/26/2024 1:00 PM ASBESTOS WORKER Nurse/Clinic Staff Only [address] [address] Immunization/Injection (COVID-19 AND FLU VACCINES ); Immunization/Injection 09/26/2024 Travel 09/20/2024 10:30 AM ASBESTOS WORKER Telemedicine [address] [place] [address] Medical Nutrition Therapy; Telehealth 09/20/2024 Travel 09/16/2024 Orders Only [address] [place] [address] Haylee Huertas MD 1 scan: (1-Ord) NFLD-EKG-09/15/24 09/15/2024 10:50 AM ASBESTOS WORKER Office Visit [address] [address] Haylee Huertas MD Cardiovascular Diagnostic Testing (Needing for Dr. Charles and Litium Draw) 09/15/2024 Travel 09/06/[address] [address] Haylee Huertas MD Refill Request (Omeprazole DR 20mg tablet) 09/02/2024 9:30 AM ASBESTOS WORKER Office Visit [address] [address] Alvarado Charles MD Medication Management 09/02/2024 Travel 08/31/[address] [address] Alvarado Charles MD Medication Management (ARIPiprazole ) 08/28/2024 Nurse Triage [address] [address] Haylee Huertas MD Cough 08/16/2024 1:30 PM ASBESTOS WORKER Telemedicine [address] [address] Alvarado Charles MD Telehealth; Medication Management (Things are not good, also has been sick with pertussis for about a month) 08/16/2024 Travel 08/15/2024 12:50 PM ASBESTOS WORKER Office Visit [address] [address] Lucita Moran PA Cough 08/15/2024 Travel 08/15/2024 Nurse Triage [facility] [address] [place] [address] Haylee Huertas MD Cough from Last 3 [...] on file Legal Sex Male 5:23 PM ASBESTOS WORKER Gender Identity Not on file Sexual Orientation Not on file 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 Not on file Not on laron e Obstetrics History Last Filed Vital Signs Vital Sign Reading Time Taken Comments Blood Pressure 123/80 09/15/2024 10:48 AM ASBESTOS WORKER Pulse 81 09/15/2024 10:48 AM ASBESTOS WORKER Temperature 36.7 C (98.1 F) 08/15/2024 12:50 PM ASBESTOS WORKER Respiratory Rate 16 08/27/2021 11:0 6 AM ASBESTOS WORKER Oxygen Saturation 95% 09/15/2024 10: 48 AM ASBESTOS WORKER Inhaled Oxygen Concentration - - Weight 114.4 kg (252 lb 3.2 oz) 024 10:48 AM ASBESTOS WORKER Height 174.4 cm (5' 8.66) 01/28/2024 7:52 AM CD T Body Mass Index 37.61 01/28/2024 7:52 AM CDT Plan of Treatment Upcoming Encounters Date Type Department Care Team (Late st Contact Info) Description 11/04/2024 12:30 PM ASBESTOS WORKER Telemedicine [facility] [address] [place] [address] Alvarado Charles MD [address] [place] [address] Health Maintenance Due Date Last Done Comments [...] Diagnosis Comments LITHIUM Routine 10/10/2024 1:14 PM ASBESTOS WORKER Long-term use of high-risk medication EKG 12 LEAD Routine 09/16/2024 4:30 PM ASBESTOS WORKER Transfer requested for continuity of care NE READING EKG - NO CHARGE, COMP ONLY Routine 09/16/2024 4:29 PM ASBESTOS WORKER Transfer requested for continuity of care LITHIUM Routine 09/15/2024 11:51 AM ASBESTOS WORKER Long-term use of high-risk medication LITHIUM Routine 09/02/2024 10:45 AM ASBESTOS WORKER Long-term use of high-risk medication TSH WITH REFLEX Routine 09/02/2024 10:45 AM ASBESTOS WORKER Long-term use of high-risk medication CBC WITH AUTO DIFFERENTIAL Routine 09/02/2024 10:45 AM ASBESTOS WORKER Long-term use of high-risk medication BASIC METABOLIC PANEL Routine 09/02/2024 10:45 AM ASBESTOS WORKER Long-term use of high-risk medication COLONOSCOPY DIAGNOSTIC Routine 02/01/2024 7:59 AM CDT Chronic diarrhea ANTI HIV 1/2 Routine 08/11/2022 2:14 PM ASBESTOS WORKER Screening for HIV (human immunodeficiency virus) ANTI HCV Routine 08/11/2022 2:14 PM ASBESTOS WORKER Need for hepatitis C screening test from Last 3 Months or Most Recently Relevant to Health Maintenance Results * (ABNORMAL) LITHIUM (10/10/2024 1:14 PM ASBESTOS WORKER) Only the most recent of3 resultswithin the time period is included. LITHIUM 0.3(L) 0.6 - 1.2 mmol/L [facility] Blood BLOOD SPECIMEN / Unknown 10/10/2024 1:14 PM ASBESTOS WORKER 10/10/2024 1:16 PM ASBESTOS WORKER Narrative [facility] - 10/11/2024 2:46 PM ASBESTOS WORKER FASTING:NO FASTING: NO us Alvarado Charles MD CHEMISTRY Final Result Performing Organization Address City/[facility] Co de Phone Number [facility] [address] [place] [address], [facility] [address] [place] [address] * EKG 12 LEAD (09/16/2024 4:30 PM ASBESTOS WORKER) us Haylee Huertas MD EKG ORD Final Resul t * NE READING EKG - NO CHARGE, COMP ONLY (09/16/2024 4:29 PM ASBESTOS WORKER) us Haylee Huertas MD PB - PROVIDER READINGS Rosa l Result * TSH WITH REFLEX (09/02/2024 10:45 AM ASBESTOS WORKER) TSH W/REFLEX TO FT4 1.79 0.40 - 4.50 mIU/L [facility] Blood BLOOD SPECIMEN / Unknown 09/02/2024 10:45 AM ASBESTOS WORKER 09/02/2024 10:45 AM ASBESTOS WORKER us Alvarado Charles MD CHEMISTRY Final Result [facility] [address] [place] [address], [facility] [address] [place] [address] * CBC AND DIFFERENTIAL (09/02/2024 10:45 AM ASBESTOS WORKER) [facility] WHITE BLOOD CELL COUNT 7.8 3.8 - 10.8 Thousand/u L [facility] RED BLOOD CELL COUNT 5.40 4.20 - 5.80 Million/uL [facility] HEMOGLOBIN 16.6 13.2 - 17.1 g/dL [facility] HEMATOCRIT 48.6 38.5 - 50.0 % [facility] MCV 90.0 80.0 - 100.0 fL [facility] MCH 30.7 27.0 - 33.0 pg [facility] MCHC 34.2 32.0 - 36.0 g/dL [facility] Comment: For adults, a slight decrease in the calculated MCHC value (in the range of 30 to 32 g/dL) is most likely not clinically significant; however, it should be interpreted with caution in correlation with other red cell parameters and the patient's clinical condition. RDW 12.8 11.0 - 15.0 % [facility] PLATELET COUNT 308 140 - 400 Thousand/u L [facility] MPV 10.8 7.5 - 12.5 fL [facility] ABSOLUTE NEUTROPHILS 4,376 1,500 - [...] BLOOD SPECIMEN / Unknown 09/02/2024 10:45 AM ASBESTOS WORKER 09/02/2024 10:45 AM ASBESTOS WORKER Alvarado Charles MD HEMATOLOGY Final Result Performing Organization Address [facility]/ZIP Co de Phone Number [facility] [address] [place] [address], [facility] [address] [place] [address] * BASIC METABOLIC PANEL (09/02/2024 10:45 AM ASBESTOS WORKER) Pathologist [facility] GLUCOSE 93 65 - 99 mg/dL [facility] [...] BLOOD SPECIMEN / Unknown 09/02/2024 10:45 AM ASBESTOS WORKER 09/02/2024 10:45 AM ASBESTOS WORKER Alvarado Charles MD CHEMISTRY Final Result Performing Organization Address [facility]/ZIP Co de Phone Number [facility] [address] [place] [address], [facility] [address] [place] [address] * SCAN-COLONOSCOPY (02/01/2024 12:00 AM CDT) Scanner OTHER Final Result * ANTI HCV (08/11/2022 2:14 PM ASBESTOS WORKER) HEPATITIS C ANTIBODY Non-React shireen Non-React shireen 08/12/2022 9:25 PM ASBESTOS WORKER [facility] Comment:Antibodies to HCV no t detected; does not exclude the possibility of exposure to HCV. Blood BLOOD SPECIMEN / Unknown Venipuncture / Unknown 08/11/2022 2:14 PM ASBESTOS WORKER 08/11/2022 2:14 PM ASBESTOS WORKER Haylee Huertas MD SEND OUTS Final Resul t Performing Organization Address City/[facility]/ZIP Co de Phone Number [facility] [address] [place] [address], [place] * ANTI HIV 1/2 [09905.0] (08/11/2022 2:14 PM ASBESTOS WORKER) Pathologist [facility] HIV-1/HIV-2 ANTIBODY Non-Reacti ve Non-Reacti ve 08/12/2022 9:32 PM ASBESTOS WORKER [facility] Comment:HIV-1 p24 and HIV-1/ HIV-2 Ab not detected. Blood BLOOD SPECIMEN / Unknown Venipuncture / Unknown 08/11/2022 2:14 PM ASBESTOS WORKER 08/11/2022 2:14 PM ASBESTOS WORKER Haylee Huertas MD SEND OUTS Final Resul t [facility] [address] [place] [address], from Last 3 Months or Most Recently Relevant to Health Maintenance Insurance [employer] Care Teams Payroll Officer Relationship Specialty Start Date End Date Haylee Huertas MD [address] [place] [address] PCP - General Family Practice 08/11/22
--- OUTSIDE RECORDS SUMMARY | 2024-10-22 09:58 | XMS_ITS | Encounter Summary ---
Author Organization [facility] Address [address] [place] [address] Care Team Providers Care Control Director Name Role Phone Elsewhere, Pcp Primary Care Provider Unavailabl e Reason for Referral * Outpatient (Routine) - Authorized Specialty Diagnoses / Procedures Referred By Janie prater Referred To Contact Neurology Annamaria Huizar APRN C.N.P., M.S. [address] [place] [phone] Phone: tel: fax: [facility] Referral ID Status Reason Start Date Expiration Date V isits Requested Visits Authorized [id number] Authorized 10/13/2024 04/14/2026 1 1 WARE QUALITY AUTOMATION ENGINEER Reason for Visit * Reason Onset Date Comments Med Question 10/13/2024 Bhupendra Encounter Details Date Type Department Care Team (Latest Contact Info) Description 10/13/2024 Clinical Communication Department of Neurology in [place], [place] [address] [place] [phone] Annamaria Huizar APRN, C.N.P., M.S. [address] [place] [phone] Med Question (Bhupendra) Social History Tobacco Use Types Packs/Day Years Used Date Smoking Tobacco: Never Passive Smoke Exposure: Past Smokeless Tobacco: Never [facility] Utilities Answer Date Recorded In the past 12 months has [facility] electric, gas, oil, or water company [...] week 11/09/2021 How often do you attend [facility] or catholic services? More than 4 times per year 11/09/2021 Do you belong to any clubs o r organizations such as latter-day groups, unions, fraternal or athletic groups, or [...] Answer Date Recorded PHQ-2 Score 0 01/09/2022 [facility] [place] of Occupat ional Health - Occupational Stress [...] your living situation today? I have a [facility] place to live 09/12/2023 Education Answer Date Recorded What is the highest level of school you have completed or the highest degree you have received? Bachelor's degree (e.g., BA, AB, BS) 11/09/2021 Sex and Gender Information Value Date Recorded Sex Assigned at Male 11/09/2021 3:34 PM SOFTWARE QUALITY AUTOMATION ENGINEER Legal Sex Male 1:05 PM CDT Gender Identity Male 11/09/2021 3:34 PM SOFTWARE QUALITY AUTOMATION ENGINEER Sexual Orientation Straight 11/09/2021 3: 34 PM SOFTWARE QUALITY AUTOMATION ENGINEER documented as of this encounter Miscellaneous Notes * Telephone Encounter - Dayana Cisneros R.N. - 10/13/2024 1:19 PM SOFTWARE QUALITY AUTOMATION ENGINEER ASSESSMENT This RN returned call to patient [...] a few photo's of the rash via [employer] message. He denies any redness to eyes. He does report some vision changes such as when he is reading he needs to try and focus more intently on reading the words. He denies fever, dizziness, unsteady, fatigue. He has been on lamotrigine 650 mg daily for years. He started [place] about one month ago and is currently [...] following references were used: nursing clinical judgement. WARE QUALITY AUTOMATION ENGINEER WARE QUALITY AUTOMATION ENGINEER documented in this encounter Plan of Treatment Upcoming Encounters Date Type Department Care Team (Latest Contact Info) Description 11/09/2024 1:45 PM SOFTWARE QUALITY AUTOMATION ENGINEER Clinical Communication Virtual Review in [place], [place] [address] [place] [phone] 11/10/2024 8:00 AM SOFTWARE QUALITY AUTOMATION ENGINEER Telemedicine Department of Neurology in [place], [place] [address] [place] [phone] Annamaria Huizar, LILO, C.N.P., M.S. [address] [place] [phone] Scheduled Referrals Name Type Priority Associated Diagnoses Orde r Schedule Neurology office visit (clinic) Outpatient Referral Routine Expected: 10/13/2024, Expires: 01/11/2026 documented as of this encounter Visit Diagnoses Not on filedocumented in this encounter Additional Health Concerns Assessment Noted Time PHQ-9 Depression Total Score: 3 01/10/20 22 7:28 AM CDT documented as of this encounter Care Teams Control Director Relationship Specialty Start Date End Date Elsewhere, Pcp PCP - General Internal Medicine 09/10/23 documented as of this encounter
== END 2024-10-22 10:09 | disposition home or self-care (01) ==
LOC: ED 09:56
PROVIDERS: Emergency Provider Family Medicine; PCP Family Medicine
DX: L29.9 Pruritus, unspecified (principal)
CPT/HCPCS: 99283; 99284

== ENCOUNTER 2025-07-15 09:36 | Emergency (ER) | payer BC, SELFPAY ==
--- OUTSIDE RECORDS SUMMARY | 2025-07-10 15:59 | XMS_ITS | Encounter Summary ---
Author Organization [facility] Address [address] [place] [address] Care Team Providers Care Clinical Haematologist Name Role Phone Elsewhere, Pcp Primary Care Provider Unavailabl e Encounter Details Date Type Department Care Team (Latest Contact Info) Description 07/10/2025 3:59 PM CDT - 07/10/2025 11:59 PM CDT Hospital Encounter Department of Laboratory Medicine in [address] [phone] Annamaria Huizar, LILO, C.N.P., M.S. [address] [place] [phone] Seizure Disorder (HCC) Discharge Disposition: Home or Self Care Social History Tobacco Use Types Packs/Day Years Used Date Smoking Tobacco: Never Passive Smoke Exposure: Past Smokeless Tobacco: Never Alcohol Use Standard Drinks/Week Comments Never 0 (1 standard drink = 0.6 oz pur e alcohol) [facility] Utilities Answer Date Recorded In the past 12 months has [employer] gas, oil, or water [employer] threatened to shut off services in your home? No 11/10/2024 Humiliation, Afraid, Rape, and Kick questionnair e [...] by your partner or ex-partner? No 11/09/2021 Hunger Vital Sign Answer Date Recorded Within the past 12 months, y ou worried that your food would run out before you got the money to buy more. Never true 11/10/19 25 Within the past 12 months, t he food you bought just didn't last and you didn't have money to get more. Never true 11/10/2024 PRAPARE - Transportation Answer Date Re corded In the past 12 months, has l ack of transportation kept you from medical appointments or from getting medications? No 10/23 In the past 12 months, has l ack of transportation kept you from meetings, work, or from getting things needed for daily living? No 11/10/2024 Depression Answer Date Recor ded PHQ-9 Total Score (max 27) 3 01/09 Housing Stability Answer Date Recorded What is your living situation today? I have a [facility] place to live 11/10/2024 Education Answer Date Recorded What is the highest level of school you have completed or the highest degree you have received? Bachelor's degree (e.g., BA, AB, BS) 11/09/2021 Sex and Gender Information Value Date Recorded Sex Assigned at Male 11/09/2021 3:34 PM LCAC OPERATOR Legal Sex Male 1:05 PM CDT Gender Identity Male 11/09/2021 3:34 PM LCAC OPERATOR Sexual Orientation Straight 11/09/2021 3: 34 PM LCAC OPERATOR documented as of this encounter Medications at Time of Discharge ARIPiprazole (Abilify) 15 mg tablet Take 1 tablet by mouth daily. 08/16/2024 lamoTRIgine (LaMICtaL) 25 mg tabletIndication s:Seizure Disorder (HCC) Take 2 tablets (50 mg total) by mouth daily. 180 tablet 3 11/10/2024 lamoTRIgine ER (LaMICtaL XR) 300 mg 24 hr tabletIndication s:Seizure Disorder (HCC) Take 2 tablets (600 mg total) by mouth daily. 180 tablet 3 11/10/2024 metFORMIN XR (Glucophage-XR) 500 mg 24 hr tablet Take 500 mg by mouth daily. 04/22/2024 UNABLE TO FIND 12/17/2020 AHI- 16; Obstructive sleep apnea - diagnosis; MRD #1. Dental appliance 09/07/2023 documented as of this encounter Plan of Treatment Upcoming Encounters Date Type Department Care Team (Latest Contact Info) Description 07/27/2025 8:00 AM LCAC OPERATOR Clinical Communication Virtual Review in [address] [phone] 07/31/2025 9:00 AM LCAC OPERATOR Appointment Department of Neurology in [address] [phone] Annamaria Huizar APRN, C.N.P., M.S. [address] [place] [phone] 08/01/2025 9:00 AM LCAC OPERATOR Appointment Department of Neurology in [address] [phone] Annamaria Huizar APRN C.N.P., M.S. [address] [place] [phone] 08/03/2025 8:00 AM LCAC OPERATOR Telemedicine Department of Neurology in [address] [phone] Annamaria Huizar APRN C.N.P., M.S. [address] [place] [phone] documented as of this encounter Procedures Procedure Name Priority Date/Time Associated Diagnosis Comments LAMOTRIGINE LEVEL, S Routine 07/10/2025 4:34 PM CDT Seizure Disorder (HCC) documented in this encounter Results * Lamotrigine Level (07/10/2025 4:34 PM CDT) Lamotrigine, S 5.9 3.0 - 15.0 mcg/mL 07/11/2025 12:14 PM CDT [facility] Comment: ----ADDITIONAL INFORMATION---- This test was developed and its performance characteristics determined by [facility] in a manner consistent with CLIA requirements. This test has not been cleared or approved by the U.S. Food and Drug Administration. Blood (Blood, Venous) 07/10/2025 4:34 PM CDT 07/11/2025 7:48 AM CDT Annamaria Huizar APRN, C.N.P., M.S. LAB BLOOD NON ADD-ON Final Result [facility] [address] [place] [address] [facility] [address] [place] [address] [place] [place] [address] documented in this encounter Visit Diagnoses Diagnosis Seizure Disorder (HCC) documented in this encounter Additional Health Concerns Assessment Noted Time PHQ-9 Depression Total Score: 3 01/10/20 22 7:28 AM CDT documented as of this encounter Care Teams Clinical Haematologist Relationship Specialty Start Date End Date Elsewhere, Pcp PCP - General Internal Medicine 09/10/23 documented as of this encounter
[2025-07-15 09:40] VITALS: BP 128/84; PULSE 99; RESP 20; TEMP 35.9; O2SAT 95; BMI 37.7
--- NOTE | 2025-07-15 10:07 | ED.BACK ---
HPI - Back Pain/Injury General Chief Complaint: Back Injury/Pain Stated Complaint: back pain Time Seen by Provider: 07/15/25 09:54 History of Present Illness HPI Narrative: Patient is a 35-year-old gentleman who has chronic low back pain. His pain is been worse recently. Pain is located in the lumbar spine without radiculopathy. He has had no fevers no chills no bowel or bladder symptoms no nausea no vomiting. No radiculopathy. Pain is 6/10 and dull. He has been seeing a chiropractor with no improvement. No other complaints or concerns. Patient has been taking Tylenol and rotating heat and ice. Patient has a mood disorder and is on lithium is concerned about taking any anti-inflammatories. Related Data Home Medications ?Medication ?Instructions ?Recorded ?Confirmed aripiprazole 20 mg tablet 15 mg PO QDAY 01/16/23 10/07/24 lamotrigine 25 mg tablet 50 mg PO ONCE 01/16/23 10/07/24 lamotrigine 300 mg tablet,extended 600 mg PO QDAY 01/16/23 10/07/24 release 24 hr aripiprazole 15 mg tablet 15 mg PO DAILY 08/28/24 10/07/24 metformin 500 mg tablet,extended 1,500 mg PO DAILY 08/28/24 10/07/24 release 24 hr lithium carbonate 600 mg capsule 600 mg PO QHS 10/07/24 10/07/24 Previous Rx's ?Medication ?Instructions ?Recorded hydrocortisone 2.5 % topical cream 1 applic topical BID PRN itching 10/07/24 #20 grams prednisone 20 mg tablet 20 mg PO BID #10 tabs 07/15/25 Allergies Allergy/AdvReac Type Severity Reaction Status Date / Time famotidine AdvReac Mild worse acid Verified 10/22/24 09:21 reflux Review of Systems Status of ROS: Reports: 10 or more systems reviewed and unremarkable except as noted in History and below PFSH PFS Social History Smoking Status: Never smoker Do you use any of these nicotine containing products: None Second hand tobacco smoke exposure: No How often do you have a drink containing alcohol: never How often do you have six or more drinks on one occasion: Never AUDIT-C Alcohol total score: 0 Non-prescribed substance use: denies use service: No Exam Narrative: Exam Narrative: EXAM GENERAL: Patient appears comfortable and well. EYES: No scleral icterus. LYMPH: No supraclavicular or cervical lymphadenopathy. SKIN: Visible skin seen during exam normal or with benign process only. EXT: No dependent lower extremity pedal edema. HEART: Regular rate and rhythm with no murmurs, rubs, or gallops. LUNGS: Clear to auscultation bilaterally with no crackles or wheezes. ABD: Soft, non tender, non distended. PSYCH: Good eye contact, speech is not pressured. Neurologic cranial nerves 2-12 grossly intact no focal defects. Const: Vital Signs, click to edit/add: Vital Signs - 24 hr 07/15/25 09:40 Temperature 96.7 F L Pulse Rate [Pulse Oximeter] 99 Respiratory Rate 20 Blood Pressure [Ri ght Upper Arm] 128/84 Pulse Oximetry 95 Oxygen Delivery Me thod Room Air Course Vital Signs Vital signs: Initial Vital Signs Temperature 96.7 F L 07/15/25 09:40 Temperature Source Temporal Artery Scan 07/15/25 09:40 Pulse Rate 99 07/15/25 09:40 Respiratory Rate 20 07/15/25 09:40 Blood Pressure 128/84 07/15/25 09:40 Blood Pressure Mean 98 07/15/25 09:40 Blood Pressure Position Sitting 07/15/25 09:40 Pulse Oximetry 95 07/15/25 09:40 Oxygen Delivery Method Room Air 07/15/25 09:40 Vital Signs Temperature 96.7 F L 07/15/25 09:40 Pulse Rate 99 07/15/25 09:40 Respiratory Rate 20 07/15/25 09:40 Blood Pressure 128/84 07/15/25 09:40 Pulse Oximetry 95 07/15/25 09:40 Oxygen Delivery Method Room Air 07/15/25 09:40 Temperature 96.7 F L 07/15/25 09:40 Pulse Rate 99 07/15/25 09:40 Respiratory Rate 20 07/15/25 09:40 Blood Pressure 128/84 07/15/25 09:40 Pulse Oximetry 95 07/15/25 09:40 Oxygen Delivery Method Room Air 07/15/25 09:40 MDM - Back Pain/Injury MDM Narrative Medical decision making narrative: Patient presents with chronic back pain. Do think that he would benefit from physical therapy consult and I did put that consult in for him. They will call him at the beginning of the week. He does not require imaging at this time. Will continue his Tylenol and had short course of prednisone. He can rotate he has an ice and follow-up with physical therapy. Discharge Plan Discharge Clinical Impression: Back pain Patient Disposition: Home, Self-Care Condition: Stable Instructions: Back Pain (ED) Additional Instructions: Prednisone as directed Tylenol 1000 mg 3 times a day as needed Rotate heat and ice Follow-up with physical therapy this coming week. Activity Level: No Restrictions Discharge Diet: Regular Prescriptions: New prednisone 20 mg tablet 20 mg PO BID Qty: 10 0RF No Action lamotrigine 25 mg tablet 50 mg PO ONCE lamotrigine 300 mg tablet extended release 24hr 600 mg PO QDAY aripiprazole 20 mg tablet 15 mg PO QDAY lithium carbonate 600 mg capsule 600 mg PO QHS hydrocortisone 2.5 % cream 1 applic topical BID PRN (Reason: itching) Qty: 20 0RF metformin 500 mg tablet extended release 24 hr 1,500 mg PO DAILY aripiprazole 15 mg tablet 15 mg PO DAILY Follow Up/Referrals: Haylee Huertas MD [Primary Care Provider, Obstetrics] Stand Alone Forms: [employer] Info Instructions
--- OUTSIDE RECORDS SUMMARY | 2025-07-15 10:12 | XMS_ITS | Clinical Summary ---
Author Organization [facility] Address [address] [place] [address] Care Team Providers Care Thrill Performer Name Role Phone Elsewhere, Pcp Primary Care Provider Unavailabl e Source Comments Patient records contain information from all sites at [facility]. For routine questions regarding patient records, call [phone] during business hours, M-F 8:00 AM - 5:00 PM Central Time. Record requests for emergency care only can be directed to [phone] at any time.[facility] Allergies Active Allergy Reactions Criticality Noted Date Comments Famotidine Other (see comments) 01/09/2022 01/09/22 Geovanni states he is allergic to famotidine not prilosec. States prilosec worked well. [place] Other (see comments) 11/09/2024 Pt unsure Omeprazole Itching 11/06/2021 Pt states he might have a reaction to the extended release version only Medications * This document contains information received from the source organization and may not represent a complete record from that organization. UNABLE TO FIND 12/17/2020 AHI- 16; Obstructive sleep apnea - diagnosis; MRD #1. Dental appliance 3 Active metFORMIN XR (Glucophage-XR) 500 mg 24 hr tablet Take 500 mg by mouth daily. 4 Active ARIPiprazole (Abilify) 15 mg tablet Take 1 tablet by mouth daily. 4 Active lamoTRIgine ER (LaMICtaL XR) 300 mg 24 hr tabletIndicatio ns:Seizure Disorder (HCC) Take 2 tablets (600 mg total) by mouth daily. 180 tablet 3 5 Active lamoTRIgine (LaMICtaL) 25 mg tabletIndicatio ns:Seizure Disorder (HCC) Take 2 tablets (50 mg total) by mouth daily. 180 tablet 3 5 Active Encounters Date Type Department Care Team Description 07/10/2025 3:59 PM CDT - 07/10/2025 11:59 PM CDT Hospital Encounter Department of Laboratory Medicine in [address] [phone] Annamaria Huizar APRN C.N.P., M.S. Seizure Disorder (HCC) Discharge Disposition: Home or Self Care from Last 3 Months Family History Medical History Relation Name Comments Sleep apnea Mother Brittani Marlow Obstructive Thyroid disease Mother Brittani Marlow Hypothyroidi sm Relation Name Status Comments Mother Brittani Marlow Alive Social History Tobacco Use Types Packs/Day Years Used Date Smoking Tobacco: Never Passive Smoke Exposure: Past Smokeless Tobacco: Never Tobacco Cessation:Counseling Given: Not Answered Alcohol Use Standard Drinks/Week Comments Never 0 (1 standard drink = 0.6 oz pur e alcohol) [facility] Utilities Answer Date Recorded In the past 12 months has e [employer], gas, oil, or water [employer] threatened to shut off services in your [...] money to buy more. Never true 11/10/19 Within the past 12 months, t he [...] your living situation today? I have a [facility] place to live 11/10/2024 Education Answer Date Recorded What is the highest level of school you have completed or the highest degree you have received? Bachelor's degree (e.g., BA, AB, BS) 11/09/2021 Sex and Gender Information Value Date Recorded Sex Assigned at Male 11/09/2021 3:34 PM [employer] Legal Sex Male 1:05 PM CDT Gender Identity Male 11/09/2021 3:34 PM [employer] Sexual Orientation Straight 11/09/2021 3: 34 PM [employer] Last Filed Vital Signs Vital Sign Reading Time Taken Comments Blood Pressure 105/75 01/09/2022 7:29 AM CDT Pulse 87 01/09/2022 7:29 AM CDT Temperature 36.4 C (97.5 F) 11/11/2021 10:01 AM [employer] Respiratory Rate - - Oxygen Saturation - - Inhaled Oxygen Concentration - - Weight 110 kg (241 lb 6.5 oz) 01/09/2022 7:29 AM CDT Height 174.5 cm (5' 8.7) 01/09/2022 7:29 AM CDT Body Mass Index 35.96 01/09/2022 7:29 AM CDT Plan of Treatment Upcoming Encounters Date Type Department Care Team (Latest Contact Info) Description 07/27/2025 8:00 AM [employer] Clinical Communication Virtual Review in [place], [place] [address] [place] [phone] 07/31/2025 9:00 AM [employer] Appointment Department of Neurology in [place], [place] [address] [place] [phone] Annamaria Huizar, LILO, C.N.P., M.S. [address] [place] [phone] 08/01/2025 9:00 AM [employer] Appointment Department of Neurology in [place], [place] [address] [place] [phone] Annamaria Huizar APRN, C.N.P., M.S. [address] [place] [phone] 08/03/2025 8:00 AM [employer] Telemedicine Department of Neurology in [place], [place] [address] [place] [phone] Annamaria Huizar APRN, C.N.P., M.S. [address] [place] [phone] Health Maintenance Due Date Last Done Comments CT Colonography 1991 Cologuard 1991 Hepatitis C Screening 1991 Hepatitis B Vaccines (1 of 3 - 19+ 3-dose series) 2010 HPV Vaccines (1 - 3-dose SCDM series) 2018 Depression Screening (Annual PHQ-2) 09/21/2024 COVID-19 Vaccine ( season) 2025 09/26/2024, 10/15/2023, 08/11/2022 Influenza Vaccine (#1) 2025 , 10/15/2023, 08/11/2022 Glucose Test for Med Monitoring 05/18/2026 05/18/2025, 11/28/2024, 08/29/2022, Additional history exists Colonoscopy 01/31/2029 02/01/2024 Colorectal Cancer Surveillance 01/31/2029 DTaP,Tdap,and Td Vaccines (7 - Td or Tdap) 08/11/2032 08/11/2022, 03/17/1995, 06/14/1992, Additional history exists HIV Screening Completed 08/11/2022 Hepatitis B Screening Discontinued 11/28/2024 IPV Vaccines Aged Out No longer eligi ble based on patient's age to complete this topic Pneumococcal vaccine (0-49 years) Aged Out No longer eligible based on patient's age to complete this topic Procedures Procedure Name Priority Date/Time Associated Diagnosis Comments LAMOTRIGINE LEVEL, S Routine 07/10/2025 4:34 PM CDT Seizure Disorder (HCC) COMPREHENSIVE METABOLIC PANEL, S/P Routine 01/09/2022 7:18 AM CDT Seizure Disorder (HCC) from Last 3 Months or Most Recently Relevant to Health Maintenance Results * Lamotrigine Level (07/10/2025 4:34 PM CDT) Lamotrigine, S 5.9 3.0 - 15.0 mcg/mL 07/11/2025 12:14 PM CDT [facility] Comment: ----ADDITIONAL INFORMATION---- This test was developed and its performance characteristics determined by [facility] in a manner consistent with CLIA requirements. This test has not been cleared or approved by the U.S. Food and Drug Administration. Blood (Blood, Venous) 07/10/2025 4:34 PM CDT 07/11/2025 7:48 AM CDT Annamaria Huizar APRN, C.N.P., M.S. LAB BLOOD NON ADD-ON Final Result [facility] [employer] [address] [place] [id number] [facility] [address] [place] [address] [place] [id number] from Last 3 Months Insurance [facility] Care Teams Thrill Performer Relationship Specialty Start Date End Date Elsewhere, Pcp PCP - General Internal Medicine 09/10/23
--- OUTSIDE RECORDS SUMMARY | 2025-07-15 10:12 | XMS_ITS | Clinical Summary ---
Author Organization [employer] Address [address] [place] [id number] Care Team Providers Care Icu Tech Name Role Phone Haylee Huertas MD Primary [...] MRD #1. Dental appliance 3 Active metFORMIN (GLUCOPHAGE XR) 500 mg Extended-Relea se tabletIndicati ons:Weight gain due to medication,Pre diabetes Take 4 Tablets (2,000 mg) by mouth once daily. 360 Tablet 3 5 Active ARIPiprazole (ABILIFY) 10 mg tabletIndicati ons:Bipolar 1 disorder (HC) Take 1 Tablet (10 mg) by mouth once daily. Further refills will be prescribed during an appointment 90 Tablet 5 Active lithium carbonate 600 mg capsuleIndicat ions:Bipolar 1 disorder (HC) Take 2 Capsules (1,200 mg) by mouth at bedtime. 180 Capsule 3 5 Active lithium carbonate (LITHONATE) 300 mg capsuleIndicat ions:Bipolar 1 disorder (HC) Take 1 Capsule (300 mg) by mouth at bedtime. With two 600 mg capsules for a daily total of 1500 mg. 90 Capsule 3 5 Active lithium carbonate 600 mg capsuleIndicat ions:Bipolar 1 disorder (HC) Take 2 Capsules (1,200 mg) by mouth at bedtime. Further refills will be prescribed during an appointment 180 Capsule 3 5 07/14/20 25 Discontin ued(*Medi cation adjustmen t) lithium carbonate (LITHONATE) 300 mg capsuleIndicat ions:Bipolar 1 disorder (HC) Take 1 Capsule (300 mg) by mouth at bedtime. With two 600 mg capsules for a daily total of 1500 mg. 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 4 COVID-19 virus infection 08/28/2023 Overview (08/28/2023): August [...] Encounters Date Type Department Care Team Description 07/14/2025 10:30 AM CDT Office Visit [facility] [address] [place] [address] [phone] Alvarado Charles MD Follow Up; Medication Management (little anxious) 07/14/2025 Travel 05/26/2025 12:30 PM CDT Office Visit [facility] [address] [facility] [place] [address] Alvarado Charles MD Follow Up; Medication Management (a little depressed right now) 05/26/2025 Travel 05/18/2025 1:20 PM CDT - 05/18/2025 11:59 PM CDT Hospital Encounter [facility] [address] [place] [address] Long-term use of high-risk medication 05/18/2025 Telephone [facility] [address] [place] [address] Alvarado Charles MD Results (Carmet level) 05/18/2025 Travel 05/15/2025 2:30 PM CDT Telemedicine [facility] [address] [place] [address] Juan Alberto Parker PsyD, MANUEL Individual Therapy; Telehealth 05/15/2025 Travel 05/08/2025 1:00 PM CDT Office Visit [address] [address] Alvarado Charles MD Medication Management 05/07/2025 Travel 04/28/2025 Telephone [facility] [address] [place] [address] Alvarado Charles MD Medication Management (Tremors progressing) from Last 3 Months Immunizations Immunization Administration Dates Next Due COVID-19 VACCINE SPIKEVAX (M ODERNA 50MCG/0.5ML) 12YO+ PFS 09/26/2024,10/15/2023 COVID-19 vaccine (Pfizer-Bio NTech 30mcg/0.3mL) 12YO+ NIKOLAY-SUCROSE PF MDV 08/11/2022 DTP 03/17/1995, 2,1991,1990,1991 Hib Conjugate, Unspecified 06/14/1992,,1991,1990 INFLUENZA, IIV3 PF (AGE >= 6 MO) 09/26/2024 Influenza, IIV4 10/15/2023,08/11/2022 MMR 03/17/1995,06/14/1992 Oral Polio Vaccine 03/17/1995, 2,1991,1990,1991 Tdap 08/11/2022 Family History Medical History Relation Name Comments Asthma Brother Fredy Depression Father Carl Heart Disease Father Carl heart surgery in his 60s, unsure of type Thyroid Disease Mother Brittani Autism Son Relation Name Status Comments Brother Fredy Father Carl Mother Brittani Son Alive Social History Tobacco Use Types Packs/Day Years Used Date Smoking Tobacco: Never Smokeless Tobacco: Never Tobacco Cessation:Counseling Given: Yes Alcohol Use Standard Drinks/Week Comments Not Currently 0 (1 standard drink = 0.6 oz pur e alcohol) denied lifetime PHQ-2 Answer Date Recorded PHQ-2 TOTAL SCORE 1 07/14/2025 Social Connections Answer Date Recorded Do you [...] on file Legal Sex Male 5:23 PM FLASK CARRIER Gender Identity Not on file Sexual Orientation Not on file 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 Not on file Not on file Not on laron e Obstetrics History Last Filed Vital Signs Vital Sign Reading Time Taken Comments Blood Pressure 121/74 07/14/2025 10:32 AM CDT Pulse 101 07/14/2025 10:32 AM CDT Temperature 36.7 C (98.1 F) 08/15/2024 12:50 PM FLASK CARRIER Respiratory Rate 16 08/27/2021 11:06 AM FLASK CARRIER Oxygen Saturation 94% 04/04/2025 2:09 PM CDT Inhaled Oxygen Concentration - - Weight 115.7 kg (255 lb) 07/14/2025 10:32 AM CDT Height 174.9 cm (5' 8.86) 04/04/2025 2:09 PM CD T Body Mass Index 37.81 04/04/2025 2:09 PM CDT Plan of Treatment Upcoming Encounters Date Type Department Care Team (Late st Contact Info) Description 08/08/2025 2:00 PM FLASK CARRIER Telemedicine [facility] [address] [place] [address] [address] [place] [address] 09/08/2025 8:30 AM FLASK CARRIER Office Visit [facility] [address] [place] [address] Alvarado Charles MD [address] [place] [address] Health Maintenance Due Date Last Done Comments Hepatitis B series for 19+ (1 of 3 - 19+ 3-dose series) 2010 HPV series for age 9-45 (1 - 3-dose SCDM series) 2018 Influenza Vaccine (#1) 2025 , 10/15/2023, 08/11/2022 BMI (ht and wt on same day) for age 18+ 04/04/2026 04/04/2025, 03/03/2025, 11/28/2024, Additional history exists Depression screening for age 12+ 07/14/2026 07/14/2025, 05/26/2025, 05/08/2025, Additional history exists Tetanus booster 08/11/2032 08/11/2022 Colonoscopy through age 75 01/31/203401/31, 02/01/2024, 02/01/2024, Additional history exists RSV vaccine for adults or (1 - 1-dose 75+ series) 2066 HIV for age 15-65 Completed 08/11/2022 Hepatitis C screening for age 18-79 Completed 11/28/2024, 08/11/2022 Pneumococcal series for age 6-49 Aged Out No longer eligible based on patient's age to complete this topic Procedures Procedure Name Priority Date/Time Associated Diagnosis Comments LITHIUM Routine 05/26/2025 1:16 PM CDT Long-term use of high-risk medication CBC WITH AUTO DIFFERENTIAL Timed 05/18/2025 1:38 PM CDT Long-term use of high-risk medication BASIC METABOLIC PANEL Today 05/18/2025 1:38 PM CDT Long-term use of high-risk medication CBC WITH AUTO DIFFERENTIAL Today 05/18/2025 1:38 PM CDT Long-term use of high-risk medication TSH WITH REFLEX Today 05/18/2025 1:38 PM CDT Long-term use of high-risk medication LITHIUM Today 05/18/2025 1:38 PM CDT Long-term use of high-risk medication ANTI HCV Routine 11/28/2024 1:55 PM CDT Transaminitis COLONOSCOPY DIAGNOSTIC Routine 02/01/2024 7:59 AM CDT Chronic diarrhea ANTI HIV 1/2 Routine 08/11/2022 2:14 PM FLASK CARRIER Screening for HIV (human immunodeficiency virus) from Last 3 Months or Most Recently Relevant to Health Maintenance Results * (ABNORMAL) LITHIUM (05/26/2025 1:16 PM CDT) Only the most recent of2 resultswithin the time period is included. Pathologist [facility] LITHIUM 0.5(L) 0.6 - 1.2 mmol/L 05/27/2025 1:13 PM CDT [facility] Blood BLOOD SPECIMEN / Unknown [facility] / Unknown 05/26/2025 1:16 PM CDT 05/26/2025 1:16 PM CDT Alvarado Charles MD CHEMISTRY Final Result [facility] [place] [place] [address], * CBC WITH AUTO DIFFERENTIAL (05/18/2025 1:38 PM CDT) Pathologist [facility] WHITE BLOOD COUNT 8.5 4.5 - 11.0 thou/cu mm 05/18/2025 1:42 PM T [facility] RED BLOOD COUNT 5.07 4.30 - 5.90 mil/cu mm 05/18/2025 1:42 PM [facility] HEMOGLOBIN 15.3 13.5 - 17.5 g/dL 05/18/2025 1:42 PM [facility] HEMATOCRIT 46.0 37.0 - 53.0 % 05/18/2025 1:42 PM [facility] MCV 91 80 - 100 fL 05/18/2025 1:42 PM [facility] MCH 30.2 26.0 - 34.0 pg 05/18/2025 1:42 PM [facility] MCHC 33.3 32.0 - 36.0 g/dL 05/18/2025 1:42 PM [facility] RDW 13.1 11.5 - 15.5 % 05/18/2025 1:42 PM [facility] PLATELET COUNT 285 140 - 440 thou/cu mm 05/18/2025 1:42 PM [facility] MPV 9.7 6.5 - 11.0 fL 05/18/2025 1:42 PM CDT [facility] % NEUT 57.6 % 05/18/2025 1:42 PM CDT [facility] % LYMPH 28.7 % 05/18/2025 1:42 PM CDT [facility] % MONO 9.6 % 05/18/2025 1:42 PM CDT [facility] % EOS 3.3 % 05/18/2025 1:42 PM T [facility] % BASO 0.8 % 05/18/2025 1:42 PM CDT [facility] ABSOLUTE NEUTROPHILS 4.9 1.7 - 7.0 thou/cu mm 05/18/2025 1:42 PM CDT [facility] ABSOLUTE LYMPHOCYTES 2.5 0.9 - 2.9 thou/cu mm 05/18/2025 1:42 PM CDT [facility] ABSOLUTE MONOCYTES 0.8 <0.9 thou/cu mm 05/18/2025 1:42 PM T [facility] ABSOLUTE EOSINOPHILS 0.3 <0.5 thou/cu mm 05/18/2025 1:42 PM T [facility] ABSOLUTE BASOPHILS 0.1 <0.3 thou/cu mm 05/18/2025 1:42 PM CDT [facility] Blood BLOOD SPECIMEN / Unknown Venipuncture / Unknown 05/18/2025 1:38 PM CDT 05/18/2025 1:38 PM CDT Alvarado Charles MD HEMATOLOGY Final Result [facility] [address] [place] [address] * TSH WITH REFLEX (05/18/2025 1:38 PM CDT) TSH 3.17 0.27 - 4.20 uIU/mL 05/18/2025 2:05 PM CDT [facility] Blood BLOOD SPECIMEN / Unknown Venipuncture / Unknown 05/18/2025 1:38 PM CDT 05/18/2025 1:[address] [facility] - 05/18/2025 2:05 PM CDT In Adults, TSH values between 5.00 and 10.00 uIU/ml do not necessarily indicate the presence of Hypothyroidism. Correlation with clinical findings such as presence of goiter and/or Thyroperoxidase (TPO) Antibody may be helpful. For more information please refer to SAWYER 2004; 291: 228-238. Alvarado Charles MD CHEMISTRY Final Result [facility] [address] [place] [address] * (ABNORMAL) BASIC METABOLIC PANEL (05/18/2025 1:38 PM CDT) SODIUM 141 136 - 145 mmol/L 05/18/2025 2:05 PM [facility] POTASSIUM 4.4 3.5 - 5.1 mmol/L 05/18/2025 2:05 PM [facility] CHLORIDE 101 98 - 107 mmol/L 05/18/2025 2:05 PM [facility] CO2,TOTAL 28 22 - 29 mmol/L 05/18/2025 2:05 PM [facility] ANION GAP 12 5 - 18 05/18/2025 2:05 PM [facility] GLUCOSE 106(H) 70 - 99 mg/dL 05/18/2025 2:05 PM [facility] CALCIUM 10.4 8.8 - 10.4 mg/dL 05/18/2025 2:05 PM [facility] Comment: Reference ranges for this test were updated on 07/26/2024 to reflect our healthy population more accurately. Reference range changes are not retroactively applied to results, but previous results using the same methodology can be interpreted in the context of the new reference range. BUN 12 6 - 20 mg/dL 05/18/2025 2:05 PM [facility] CREATININE 1.05 0.70 - 1.20 mg/dL 05/18/2025 2:05 PM [facility] BUN/CREAT RATIO 11 10 - 20 2:05 PM CDT [facility] eGFR >90 >90 mL/min/1. 73m2 05/18/2025 2:05 PM CDT [facility] Comment:As of 2021, eG FR is calculated by the CKD-EPI creatinine equation without race adjustment. eGFR can be influenced by muscle mass, exercise, and diet. The reported eGFR is an estimation only and is only applicable if the renal function is stable. Blood BLOOD SPECIMEN / Unknown Venipuncture / Unknown 05/18/2025 1:38 PM CDT 05/18/2025 1:38 PM CDT Alvarado Charles MD CHEMISTRY Final Result Performing Organization Address [facility] Co de Phone Number [facility] [address] [place] [address] * ANTI HCV (11/28/2024 1:55 PM CDT) HEPATITIS C ANTIBODY NON-REACTI VE NON-REACT FERNANDO [facility]len [facility] Comment: HCV antibody was non-reactive. There is no laboratory evidence of HCV infection. In most cases, no further action is required. However, if recent HCV exposure is suspected, a test for HCV RNA (test code 13939) is suggested. For additional information please refer to http://education.5app/faq/EIY60o6 (This link is being provided for informational/ educational purposes only.) Blood BLOOD SPECIMEN / Unknown 11/28/2024 1:55 PM CDT 11/28/2024 1:56 PM CDT Haylee Huertas MD SEND OUTS Final Resul t Performing Organization Address City/[facility] Co de Phone Number [employer] [facility] [address] [place] [address], [facility] [address] [place] [address] * SCAN-COLONOSCOPY (02/01/2024 12:00 AM CDT) us Scanner OTHER Final Result * ANTI HIV 1/2 [16732.0] (08/11/2022 2:14 PM FLASK CARRIER) HIV-1/HIV-2 ANTIBODY Non-Reacti ve Non-Reacti ve 08/12/2022 9:32 PM FLASK CARRIER [facility] Comment:HIV-1 p24 and HIV-1/ HIV-2 Ab not detected. Blood BLOOD SPECIMEN / Unknown Venipuncture / Unknown 08/11/2022 2:14 PM FLASK CARRIER 08/11/2022 2:14 PM FLASK CARRIER us Haylee Huertas MD SEND OUTS Final Resul t [facility] [address] [place] [address], from Last 3 Months or Most Recently Relevant to Health Maintenance Insurance [facility] [place] Care Teams Icu Tech Relationship Specialty Start Date End Date Haylee Huertas MD [address] [place] [address] PCP - General Family Practice 08/11/22
== END 2025-07-15 10:24 | disposition home or self-care (01) ==
PROVIDERS: Emergency Provider Internal Medicine; PCP Family Medicine
DX: M54.50 Low back pain, unspecified (principal)
CPT/HCPCS: 99283